=== PATIENT | male | born 1950 | race Caucasian/White ===

== ENCOUNTER 2017-10-03 11:05 | Emergency (ER) | payer OTHER, MEDICARE ==
[~2017-10-03] VITALS: Ht 188 cm; Wt 117.9 kg
[2017-10-03 11:19] VITALS: Ht 188 cm; Wt 117.9 kg
[2017-10-03 12:46] VITALS: BP 158/72
== END 2017-10-03 12:46 | disposition home or self-care (01) ==
LOC: ED 11:05
DX: S52.514A Nondisplaced fracture of right radial styloid process, initial encounter for closed fracture (principal); I10 Essential (primary) hypertension; V87.8XXA Person injured in other specified noncollision transport accidents involving motor vehicle (traffic), initial encounter; Y93.I9 Activity, other involving external motion; Y92.89 Other specified places as the place of occurrence of the external cause; Y99.8 Other external cause status
CPT/HCPCS: J1885

== ENCOUNTER 2018-12-02 23:46 | Emergency (ER) | payer OTHER, MEDICARE ==
[~2018-12-02] VITALS: Ht 190.5 cm; Wt 133.8 kg
[2018-12-02 23:55] VITALS: Ht 190.5 cm; Wt 133.8 kg
[2018-12-03 03:14] VITALS: BP 109/90
== END 2018-12-03 03:14 | disposition home or self-care (01) ==
LOC: ED 23:46
DX: R33.9 Retention of urine, unspecified (principal); I10 Essential (primary) hypertension; Z98.890 Other specified postprocedural states
CPT/HCPCS: J2270; J2405; J3010